=== PATIENT | male | born 1955 | race Two or more races ===

== ENCOUNTER 2022-12-01 09:03 | Emergency (ER) | payer MEDICAID ==
[~2022-12-01] VITALS: Ht 170.2 cm; Wt 76.4 kg
[2022-12-01 10:10] VITALS: BP 113/67
[2022-12-01] MEDS ORDERED: ERY05OO OP (11:10)
[2022-12-01] MEDS ORDERED: IBUP-1454 PO (11:10)
[2022-12-01] MEDS ORDERED: ACETAMINOPHEN 500 MG TAB PO ONE (11:15)
== END 2022-12-01 11:37 | disposition home or self-care (01) ==
LOC: ER 09:03
DX: H11.32 Conjunctival hemorrhage, left eye (principal); Z79.1 Long term (current) use of non-steroidal anti-inflammatories (NSAID); Z79.2 Long term (current) use of antibiotics

== ENCOUNTER 2023-02-19 18:28 | Emergency (ER) | payer OTHER ==
[~2023-02-19] VITALS: Ht 162.6 cm; Wt 76.8 kg
[~2023-02-19 18:28] MED LIST: ERY05OO OP; IBUP-1454 PO; IBUP-1455 PO; MICO2AER EX
[2023-02-19] MEDS ORDERED: DexAMETHasone SOD PHOS 10MG/1ML VIAL INJ IM ONE (19:15)
[2023-02-19] MEDS ORDERED: [UNRECOGNIZED DRUG - CODE] EX (19:15)
[2023-02-19 19:37] VITALS: BP 111/82; PULSE 75; RESP 20; O2SAT 96
== END 2023-02-19 19:50 | disposition home or self-care (01) ==
LOC: ER 18:28
DX: B35.6 Tinea cruris (principal); Z79.1 Long term (current) use of non-steroidal anti-inflammatories (NSAID); Z79.2 Long term (current) use of antibiotics; Z79.899 Other long term (current) drug therapy
CPT/HCPCS: 96372; 99283; J1100

== ENCOUNTER 2023-02-28 12:19 | Emergency (ER) | payer OTHER ==
[~2023-02-28] VITALS: Ht 170.2 cm; Wt 77.6 kg
[~2023-02-28 12:19] MED LIST changes: +[UNRECOGNIZED DRUG - CODE] EX
[2023-02-28] MEDS ORDERED: IOHEXOL 350 MG/ML 100ML IJ ONE ×2 (13:08→14:36)
[2023-02-28 13:39] LABS: Basophils # (auto) 0 10 ^3/uL (0-0.2); Basophils % (auto) 0.8 % (0.0-2.0); Eosinophils # (auto) 0.4 10 ^3/uL (0-0.8); Eosinophils % (auto) 6.9 % (0.0-7.0); Hematocrit 43.2 % (41.0-53.0); Hemoglobin 14.6 g/dL (13.5-17.5); Lymphocytes # (auto) 1.9 10 ^3/uL (0.4-5.4); Lymphocytes % (auto) 29.2 % (10.0-50.0); Mean Corpuscular Hgb Conc. 33.9 g/dL (32.0-36.0); Mean Corpuscular Volume 88.4 fL (80.0-100.0); Monocytes # (auto) 0.5 10 ^3/uL (0-1.3); Monocytes % (auto) 7.7 % (0.0-12.0); Neutrophils # (auto) 3.5 10 ^3/uL (1.6-8.6); Neutrophils % (auto) 55.4 % (37.0-80.0); Nucleated Red Blood Cells % 0.2 %; Red Blood Cells 4.88 10^6/uL (4.5-5.90); Red Cell Distribution Width 14.4 % (11.8-14.3); White Blood Cell 6.4 10^3/uL (4.4-10.8)
[2023-02-28 13:55] LABS: INR 1.13 (0.9-1.15); Partial Thromboplastin Time 31.3 SEC (24.5-34.5); Prothrombin Time 11.8 sec (9.3-11.8)
[2023-02-28 14:01] LABS: Alanine Aminotransferase 16 U/L (7-40); Alkaline Phosphatase 65 U/L (46-116); Anion Gap 6 (5-15); Aspartate Aminotransferase 19 U/L (13-40); BUN/Creatinine Ratio 16.2 (10.0-20.0); Bilirubin, Total 1.4 mg/dL (0.2-1.0); Blood Urea Nitrogen 19 mg/dL (9-23); Calcium 9.5 mg/dL (8.5-10.1); Carbon Dioxide 26 mmol/L (20-30); Chloride 106 mmol/L (98-107); Glucose 88 mg/dL (74-106); Sodium 138 mmol/L (136-145); Total Protein 6.4 g/dL (5.7-8.2)
[2023-02-28 17:17] VITALS: BP 134/69; PULSE 58; RESP 18; TEMP 97.2; O2SAT 98
== END 2023-02-28 16:00 | disposition home or self-care (01) ==
LOC: ER 12:19
DX: D35.2 Benign neoplasm of pituitary gland (principal); R41.0 Disorientation, unspecified; R42 Dizziness and giddiness; Z79.01 Long term (current) use of anticoagulants
CPT/HCPCS: 36415; 70496; 80053; 84484; 85025; 85610; 85730; 93005; 99285; Q9967